=== PATIENT | male | born 2005 | race Caucasian/White ===

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

== ENCOUNTER 2024-09-29 08:31 | Emergency (ER) | payer SELFPAY ==
[2024-09-29 08:39] VITALS: BP 125/72; PULSE 69; RESP 16; TEMP 36.6; O2SAT 97; BMI 20.6
--- NOTE | 2024-09-29 08:39 | ED_ITS ---
HPI - Nausea/Vomiting/Diarrhea General Chief complaint: Abdominal Pain Stated complaint: Vomiting Time Seen by Provider: 09/29/24 11:17 Source: patient Mode of arrival: ambulatory Limitations: no limitations History of Present Illness ED Provider: Zenaida Deleon PA-C HPI Narrative: 19 yo male presnets to the ER for evaluation of vomiting along with a headache that started this morning. He states he has a scratchy throat, some body aches and muscle aches. He vomited 2 times this morning. He denies any associated abdominal pain, shortness of breath, chest pain. He states he is starting to feel little bit better. No known sick contacts. MD elicited complaint: vomiting and other (sore throat, headache) Onset (ago): hour(s) Description of vomiting: food contents Associated nausea: No Associated abdominal pain: No Location of pain: none Exacerbating factors: none Relieving factors: none Associated symptoms: myalgias, headaches and malaise Related Data Previous Rx's ?Medication ?Instructions ?Recorded amoxicillin 875 mg-potassium 1 tab PO BID #20 tabs 07/19 clavulanate 125 mg tablet ibuprofen 600 mg tablet 600 mg PO Q8H PRN fever or p ain 09/29/24 #14 tabs ondansetron 4 mg disintegrating 4 mg PO Q8H PRN nausea and 09/29/24 tablet vomiting #7 tabs Allergies Allergy/AdvReac Type Severity Reaction Status Date / Time No Known Allergies Allergy Verified 09/29/24 08:39 Review of Systems 2 Review of Systems: Yes all other systems are reviewed and are negative Gastrointestinal: Gastrointestinal: Denies nausea PMFSH Social History Social History Advance Directives: No Advance Directives Information Provided: Yes Physical Exam 2 Exam: Exam: Appearance: Alert. Oriented X3. No acute distress. Head: normocephalic, atraumatic. Eyes: Pupils equal, round and reactive to light. ENT: Pharynx with moderate generalized erythema, No tonsillar swelling or exudate. Neck: Normal inspection. Neck supple. CVS: Normal heart rate and rhythm. Pulses normal. Respiratory: No respiratory distress. Breath sounds normal. Abdomen: Soft and nontender. +BS x4 Skin: Skin warm and dry. Normal skin color. Normal skin turgor. No rashes. Extremities: No lower extremity edema. No joint swelling. Neuro/psych: Oriented X 3. grossly normal, nonfocal. Normal speech and cognition. Vital Signs: Vital Signs: Last Vital Signs Temp 97.8 F 09/29/24 08:39 Pulse 69 09/29/24 08:39 Resp 16 09/29/24 08:39 BP 125/72 09/29/24 08:39 Pulse Ox 97 09/29/24 08:39 O2 Del Method Room Air 09/29/24 08:39 BMI result Body Mass Index 20.6 Course Course Course Narrative: This is an RME: Additional HPI, ROS, PE not included below will be deferred to primary provider. RME assessment and note performed by: Tiara Casanova PA-C This is a 71-xrpt-foe-male, with no known medical problems, who presents to the ER with a complaint of nausea and vomiting since this morning. Reports that this woke him up. Reporting headache and sore throat. No abdominal pain now, had some abdominal pain previously. No recent etoh use. Reporting subjective fevers and chills. No diarrhea. Plan: Labs, Viral swabs, strep swab Medical Decision Making Medical Decision Making [facility] Narrative: 19-year-old male presents to the ER for evaluation of vomiting, headache, scratchy throat that started this morning. Vital signs are stable. He appears well. Physical exam is unremarkable. Lab work today shows no anemia, no leukocytosis. Normal LFTs, no major metabolic derangement. He did test positive for strep throat. Will start him on Augmentin and p.r.n. Zofran. He is able to tolerate p.o. and is stable for discharge home. Differential Diagnosis Differential Diagnoses: The differential diagnosis associated with the presentation includes strep, covid, flu, rsv, other viral syndrome, gastroenteritis, dehydration - no evidence of peritonsillar abcsess or retropharyngeal abscess Lab Data [facility] Lab Attestation statement: I reviewed the patient's lab results. see above 09/29/24 09:00 09/29/24 09:00 Labs: Lab Results 09/29/24 Range/Units 09:00 WBC 4.9 (4.8-10.8) X10*3/uL RBC 5.12 (4.60-5.80) X10*6/uL Hgb 16.2 (14.0-18.0) g/dl Hct 45.4 (42.0-52.0) % MCV 88.7 (80.0-98.0) fL MCH 31.6 (27.0-33.0) pg MCHC 35.7 (31.0-36.0) g/dl RDW 11.9 (11.0-16.0) % Plt Count 261 (160-400) X10*3/uL MPV 8.3 L (9.4-12.4) fL Immature Gran % (Auto) 0.2 (0.0-0.4) % Neut % (Auto) 63.6 (45-73) % Lymph % (Auto) 26.6 (20-40) % Nicholas % (Auto) 8.0 (2-11) % Eos % (Auto) 0.8 (0-4) % Baso % (Auto) 0.8 (0-2) % Lymph # (Auto) 1.3 (1.2-4.9) X10*3/uL Nicholas # (Auto) 0.4 (0.1-1.2) X10*3/uL Eos # (Auto) 0.0 (0.0-0.4) X10*3/uL Baso # (Auto) 0.0 (0.0-0.2) X10*3/uL Abs Immat Gran (auto) 0.01 (0.00-0.03) X10*3/uL Absolute Neuts (auto) 3.1 (2.0-8.3) x10*3/uL Absolute Nucleated RBC 0.000 (0.0-0.012) X10*3/uL Nucleated RBC % (auto) 0.0 (0.0-0.2) /100WBC Sodium 141 (135-145) mmol/L Potassium 4.0 (3.3-5.1) mmol/L Chloride 107 (96-108) mmol/L Carbon Dioxide 28 (22-29) mmol/L Anion Gap 10 L (12-20) BUN 10 (9-16) mg/dL Creatinine 1.04 (0.5-1.4) mg/dL Estim Creat Clear Calc 119.9 Estimated GFR > 60 Random Glucose 85 (60-115) mg/dL Calcium 9.1 (8.4-10.2) mg/dL Magnesium 1.9 (1.6-2.6) mg/dL Total Bilirubin 0.8 (0.0-1.0) mg/dL Direct Bilirubin 0.3 (0.0-0.5) mg/dL AST 24 (5-37) U/L ALT 18 (0-40) U/L Alkaline Phosphatase 85 (39-117) U/L Total Protein 7.2 (6.5-8.0) g/dL Albumin 4.7 (3.5-5.0) g/dL Lipase 10 (8-78) U/L Influenza Type A (PCR) NEGATIVE (Negative) Influenza Type B (PCR) NEGATIVE (Negative) RSV RNA Qual (PCR) NEGATIVE (Negative) SARS-CoV-2 RNA (RT-PCR) NEGATIVE (Negative) S. pyogenes GrpA JEANNE Positive A (Negative) Tests considered The following testing was considered but not selected: considered abdominal imaging however his abdominal exam is benign Prescription Management I considered prescription management with: Pain Medication and Antibiotic Critical Care Time Critical Care Time Critical Care Time: No Discharge Plan Discharge Clinical Impression: Acute streptococcal pharyngitis Patient Disposition: Home, Self-Care Instructions: Strep Throat (DC) Additional Instructions: Take the prescribed antibiotics as directed, complete the entire course and do not miss any doses Prescriptions: New amoxicillin-pot clavulanate 875-125 mg tablet 1 tab PO BID Qty: 20 0RF ibuprofen 600 mg tablet 600 mg PO Q8H PRN (Reason: fever or pain) Qty: 14 0RF ondansetron 4 mg tablet,disintegrating 4 mg PO Q8H PRN (Reason: nausea and vomiting) Qty: 7 0RF Stand Alone Forms: Work/School Release Discharge Date/Time: 09/29/24 11:38 Print Language: Ecuadorean
[2024-09-29 09:24] LABS: MANUAL DIFF FLAG NO
--- OUTSIDE RECORDS SUMMARY | 2024-09-29 09:24 | XMS_ITS | Clinical Summary ---
Author Organization [employer] Address [address] [place] [address] [address] [place] [address] Care Team Providers Care Database Modeler Name Role Phone Kierra Castillo MOO Primary Care Provider [phone] Allergies No known active allergies Medications sodium chloride (Taney Nasal [place]) 0.65 % nasal sprayIndication s:Viral syndrome 1-2 sprays on each nostril every 2-3 hours as needed for nasal congestion 30 mL 1 Active Active Problems No known active problems Social History Tobacco Use Types Packs/Day Years Used Date Smoking Tobacco: Never Passive Smoke Exposure: Never Smokeless Tobacco: Never Tobacco Cessation:Counseling Given: Not Answered Sex and Gender Information Value Date Recorded Sex Assigned at Male 12/25/2021 10:18 AM EDT Legal Sex Male 10:18 AM EDT Gender Identity Male 12/25/2021 10:18 AM EDT Sexual Orientation Straight 12/25/2021 10 :18 AM EDT Last Filed Vital Signs Vital Sign Reading Time Taken Comments Blood Pressure 129/77 06/06/2022 3:05 PM EDT Pulse 99 06/06/2022 3:05 PM EDT Temperature 36.9 C (98.5 F) 06/06/2022 3:05 PM EDT Respiratory Rate 20 06/06/2022 3:05 PM EDT Oxygen Saturation 97% 06/06/2022 3:05 PM EDT Inhaled Oxygen Concentration - - Weight 79 kg (174 lb 3.2 oz) 11/30/2021 12:10 AM EDT Height 187.3 cm (6' 1.75 ) 11/30/2021 12:10 AM E DT Body Mass Index 22.52 11/30/2021 12:10 AM EDT Plan of Treatment Health Maintenance Due Date Last Done Comments Chlamydia and Gonorrhea Screening 2004 Depression Screening 2004 HIV Screening 2004 SDOH Screening 2004 Disability Screening 2004 Alcohol/Substance Use Screening 2016 Family Planning (PISQ) 07/14/2019 Meningococcal B Vaccine (1 of 2 - Standard) 2020 Hepatitis C Screening 2022 Tobacco Screening 06/07/2023 06/06/2022 COVID-19 Vaccine ( season) 2023 Influenza Vaccine (#1) 2024 9, 02/15/2017, 02/23/2016, Additional history exists DTaP/Tdap/Td Vaccines (6 - Td or Tdap) 02/22/2026 02/23/2016, 02/17/2009, 10/19/2005, Additional history exists Zoster Vaccines (1 of 2) 2054 RSV Patients and Patients Aged 60 years or older (1 - 1-dose 75+ series) 07/14/2079 HIB Vaccines Aged Out 06/29/2005, 10/27, 2004 No longer eligible based on patient's age to complete this topic Hepatitis B Vaccines Completed 06/29/2005, 2004, 2004 Pneumococcal Vaccine: Pediatrics (0 to 5 Years) and At-Risk Patients (6 to 49) Years Aged Out 10/19/2005, 06/29/2005, 2004, Additional history exists No longer eligible based on patient's age to complete this topic IPV Vaccines Completed 02/17/2009, 09/26, 06/29/2005, Additional history exists Meningococcal Vaccine Aged Out 02/23/2016 No markie cheli eligible based on patient's age to complete this topic HPV Vaccines Completed 02/15/2017, 02/23/2016 Hepatitis A Vaccines Completed 02/15/2017, 01/14/20 15 RSV under 20 months Aged Out No longe r eligible based on patient's age to complete this topic Rotavirus Vaccines Aged Out No longer eligible based on patient's age to complete this topic Insurance [facility] C3 Care Teams Database Modeler Relationship Specialty Start Date End Date Kierra Castillo NP [address] [place] [address] PCP - General Family Medicine 03/29/23
[2024-09-29 09:26] LABS: Hematocrit 45.4 % (42.0-52.0); Hemoglobin 16.2 g/dl (14.0-18.0); Imm Gran Abs Auto 0.01 X10*3/uL (0.00-0.03); Imm Gran Pct Auto 0.2 % (0.0-0.4); Lymphocytes Absolute Auto 1.3 X10*3/uL (1.2-4.9); Mean Corpuscular HGB Conc 35.7 g/dl (31.0-36.0); Mean Corpuscular Hemoglobin 31.6 pg (27.0-33.0); Mean Corpuscular Volume 88.7 fL (80.0-98.0); NRBC Abs Auto 0.000 X10*3/uL (0.0-0.012); NRBC Pct Auto 0.0 /100WBC (0.0-0.2); Platelet Count 261 X10*3/uL (160-400); Red Blood Count 5.12 X10*6/uL (4.60-5.80); White Blood Count 4.9 X10*3/uL (4.8-10.8)
[2024-09-29 09:43] LABS: Alanine Aminotransferase 18 U/L (0-40); Albumin Level 4.7 g/dL (3.5-5.0); Alkaline Phosphatase 85 U/L (39-117); Anion Gap 10 (12-20); Aspartate Amino Transferase 24 U/L (5-37); Blood Urea Nitrogen 10 mg/dL (9-16); Calcium 9.1 mg/dL (8.4-10.2); Carbon Dioxide 28 mmol/L (22-29); Chloride 107 mmol/L (96-108); Creatinine Clr Calc Pharmacy 119.9; Estimated Glomerular Filt Rate > 60; Lipase 10 U/L (8-78); Magnesium 1.9 mg/dL (1.6-2.6); Potassium 4.0 mmol/L (3.3-5.1); Sodium 141 mmol/L (135-145); Total Protein 7.2 g/dL (6.5-8.0)
[2024-09-29 10:06] LABS: Resp Syncy Virus RNA Qual PCR NEGATIVE (Negative); SARS COV2 PCR INHOUSE NEGATIVE (Negative)
[2024-09-29 10:40] LABS: IDNOW Serial# 58CA691E; Strep A Nucleic Acid Positive (Negative)
== END 2024-09-29 11:38 | disposition home or self-care (01) ==
PROVIDERS: Physician Assistant Medical; Emergency Provider Emergency Medicine
DX: J02.0 Streptococcal pharyngitis (principal); R11.10 Vomiting, unspecified; R51.9 Headache, unspecified; Z03.818 Encounter for observation for suspected exposure to other biological agents ruled out
CPT/HCPCS: 80048; 80076; 83690; 83735; 85025; 87637; 87651; 99281; 99283

== ENCOUNTER 2024-12-07 12:58 | Emergency (ER) | payer MEDICAID, SELFPAY ==
[2024-12-07 13:06] VITALS: BP 128/59; PULSE 67; RESP 16; TEMP 36.3; O2SAT 99; BMI 21.9
--- NOTE | 2024-12-07 13:06 | ED_ITS ---
HPI - General Adult General Chief complaint: Eye Problems Stated complaint: pink eye Time Seen by Provider: 12/07/24 13:09 Source: patient Mode of arrival: ambulatory Limitations: no limitations History of Present Illness ED Provider: Brittney Rodriguez PA-C HPI narrative: Patient is a 19 year old assigned male at with no reported medical history presenting to the emergency department today with right eye pain, redness, and discharge. Patient states that he woke up this morning with right eye pain, crusting, and redness. Patient denies any other complaints at this time. Related Data Previous Rx's ?Medication ?Instructions ?Recorded amoxicillin 875 mg-potassium 1 tab PO BID #20 tabs 07/19 clavulanate 125 mg tablet ibuprofen 600 mg tablet 600 mg PO Q8H PRN fever or p ain 09/29/24 #14 tabs ondansetron 4 mg disintegrating 4 mg PO Q8H PRN nausea and 09/29/24 tablet vomiting #7 tabs erythromycin 5 mg/gram (0.5 %) eye 0.5 inch ophthalmic (eye) Q4H #3.5 12/07/24 ointment grams Allergies Allergy/AdvReac Type Severity Reaction Status Date / Time No Known Allergies Allergy Verified 12/07/24 13:08 Review of Systems Constitutional: Constitutional: Reports as per HPI Eyes: Eyes: Reports as per HPI ENT: Reports as per HPI Cardiovascular: Cardiovascular: Reports as per HPI Respiratory: Respiratory: Reports as per HPI Gastrointestinal: Gastrointestinal: Reports as per HPI Genitourinary: Genitourinary: Reports as per HPI Musculoskeletal: Musculoskeletal: Reports as per HPI Integumentary/Breasts: Skin/Breast: Reports as per HPI Neurologic: Reports as per HPI Psychiatric: Psychiatric: Reports as per HPI Endocrine: Endocrine: Reports as per HPI Hematologic/Lymphatic: Hematologic/Lymphatic: Reports as per HPI Allergic/Immunologic: Allergic/Immunologic: Reports as per HPI [facility] Past Medical History Attestation statement: The following information was validated with the patient. Source: old records reviewed and nursing notes reviewed Social History Social History Advance Directives: No Advance Directives Information Provided: No Do you have a plan to hurt others: No Plan Physical Exam ED Vital Signs: Vital Signs - 24 hr 12/07/24 13:06 Temperature 97.4 F Pulse Rate 67 Respiratory Rate 16 Blood Pressure 128/59 L Pulse Oximetry 99 Oxygen Delivery Method Room Air BMI result Body Mass Index 21.9 Const General: cooperative, no acute distress, alert and awake Nutritional Appearance: well nourished Orientation/consciousness: patient oriented x3 HENMT Head: Yes normal to inspection and Yes atraumatic Ears: hearing grossly normal bilaterally and external ears normal General nose exam: Normal external nose present, no nasal discharge noted and no epistaxis Face and sinus: Yes normal facial exam, No abrasion and No laceration Mouth: Normal oral and palatal mucosa present, no drooling and no muffled voice Eyes Other: minimal right eye erythema with crusting - consistent with conjunctivitis General: appearance normal, both eyes and all related structures Eyelids: Yes eyelids normal Pupils: Equal, round and reactive pupils present EOM: EOMs intact bilaterally Neck Neck: Yes normal visual inspection and Yes full ROM Resp Effort & Inspection: normal respiratory effort and able to speak in complete sentences Neuro General: patient oriented x3, moves all extremities and CN's II-XI intact bilaterally Cranial nerves: Yes Equal, round and reactive pupils present Cognition (Neuro): normal cognition Extrem General: Yes normal to inspection, Yes full ROM and Yes capillary refill normal Psych Appearance: grossly normal Mental Status: mental status grossly normal Affect: normal affect Attitude: cooperative Thought process: Normal thought process present Thought content: Normal thought content present Insight: Good insight present (Psych) Medical Decision Making Medical Decision Making MDM Narrative: Patient is a 19 year old assigned male at with no reported medical history presenting to the emergency department today with right eye pain, redness, and discharge. Patient's physical exam was as noted in the physical exam portion of this note and consistent with conjunctivitis. I explained my physical exam findings to the patient. I answered all questions asked by the patient. I stressed the importance of the patient taking his medication as directed (either prescribed or as the over the counter packaging recommends). I stressed the importance of the patient following up with his primary care provider. I stressed the importance of the patient returning to the emergency department immediately if his symptoms were to worsen or if he were to develop any dizziness, shortness of breath, difficulty breathing, chest pain, blurry vision, loss of vision, nausea, vomiting, abdominal pain, fever, chills, back pain, or any other complaints. Patient verbalized agreement and understanding with this treatment plan and discharge. Differential Diagnosis Differential Diagnoses: The differential diagnosis associated with the presentation includes Right eye pain Right eye swelling Right conjunctivitis Admission/Observation Consideration of admission/observation: Escalation of care including admission/observation considered Patient would have been admitted to the hospital had his clinical presentation warranted hospital admission. Prescription Management I considered prescription management with: Antibiotic (patient prescribed an antibiotic for right sided conjunctivitis) Discharge Plan Discharge Clinical Impression: Conjunctivitis Qualifiers: Conjunctivitis type: unspecified Laterality: right Qualified Code(s): H10.9 - Unspecified conjunctivitis Patient Disposition: Home, Self-Care Instructions: Conjunctivitis (ED) Additional Instructions: Use your antibiotic ointment as prescribed. IF you are prescribed home medications and/or you are taking over the counter medications at home - it is very important you continue to do so as prescribed / directed unless told otherwise. Follow up with your primary care provider. Return to the emergency department immediately if your symptoms worsen or if you develop any numbness, tingling, dizziness, shortness of breath, difficulty breathing, chest pain, blurry vision, loss of vision, nausea, vomiting, abdominal pain, fever, chills, back pain, or any other complaints. Please see the information below about our Patient Portal. If you are not yet enrolled in the [facility] Patient Portal, you will receive an enrollment email invitation following your visit to any [facility] setting. You may also self-enroll in the Patient Portal by visiting our website: [email or web address] The following information is required to access the Patient Portal: - Your [facility] Medical Record Number - Your personal home email address (must match what is in your electronic medical record, Registration staff can assist with this) - Name - Date of Capabilities of the Patient Portal: - Message some providers - View upcoming appointments - Access your health summary, medical history, and visit history - View current conditions and allergies - View procedure and lab results - View your medications, including guidelines, side effects, and precautions - Complete pre-appointment questionnaires requested by your provider - Ready summary reports of your office visits and procedures To access the Patient Portal Mobile [employer], follow these directions: - Search [employer] in the Masha Store or Google Play Store - Download the Masha - Search for [facility] - Enter your login/password Prescriptions: New erythromycin 5 mg/gram (0.5 %) ointment 0.5 inch ophthalmic (eye) Q4H Qty: 3.5 0RF No Action amoxicillin-pot clavulanate 875-125 mg tablet 1 tab PO BID Qty: 20 0RF ibuprofen 600 mg tablet 600 mg PO Q8H PRN (Reason: fever or pain) Qty: 14 0RF ondansetron 4 mg tablet,disintegrating 4 mg PO Q8H PRN (Reason: nausea and vomiting) Qty: 7 0RF Referrals: [place],[facility] [Primary Care Provider, Medical] Stand Alone Forms: Work/School Release Discharge Date/Time: 12/07/24 13:26 Print Language: Macedonian
--- OUTSIDE RECORDS SUMMARY | 2024-12-07 13:19 | XMS_ITS | Encounter Summary ---
Author Organization [employer] Address [address] [facility] [address] [place] [address] Care Team Providers Care Recruiter Name Role Phone Kierra Castillo NP Primary Care Provider [phone] Reason for Visit * Reason Onset Date Comments Nurse Triage 10/14/2023 Encounter Details Date Type Department Care Team ([facility] st Contact Info) Description 10/14/2023 Telephone [facility] MEDICINE [address] [place] [address] Kierra Castillo NP [address] [place] [address] Nurse Triage Social History Tobacco Use Types Packs/Day Years Used Date Smoking Tobacco: Never Passive Smoke Exposure: Never Smokeless Tobacco: Never Sex and Gender Information Value Date Recorded Sex Assigned at Male 12/25/2021 10:18 AM EDT Legal Sex Male 10:18 AM EDT Gender Identity Male 12/25/2021 10:18 AM EDT Sexual Orientation Straight 12/25/2021 10 :18 AM EDT documented as of this encounter Miscellaneous Notes * Telephone Encounter - Gustavo Mcguire - 10/14/2023 12:48 PM EDT Symptom: Coughing Up Blood Outcome: Schedule an urgent appointment (within 1 hour) or talk to a nurse or provider soon Reason: Caller denied all higher acuity questions documented in this encounter Plan of Treatment Not on file documented as of this encounter Visit Diagnoses Not on filedocumented in this encounter Care Teams Recruiter Relationship Specialty Start Date End Date Kierra Castillo NP [address] [place] [address] PCP - General Family Medicine 03/29/23 documented as of this encounter
--- OUTSIDE RECORDS SUMMARY | 2024-12-07 13:19 | XMS_ITS | Clinical Summary ---
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 Name Role Phone Kierra Castillo MOO Primary Care Provider [phone] Allergies No known active allergies Medications sodium chloride ([place] Nasal [place]) 0.65 % nasal sprayIndication s:Viral syndrome 1-2 sprays on each nostril every 2-3 hours as needed for nasal congestion 30 mL 1 Active Active Problems No known active problems Encounters Date Type Department Care Team Description 09/29/2024 Orders Only GENERIC EXTERNAL DATA DEPARTMENT Provider, Generic External Data from Last 3 Months Social History Tobacco Use Types Packs/Day Years [...] Screening 06/07/2023 06/06/2022 COVID-19 Vaccine ( season) 2024 Influenza Vaccine (#1) 2024 9, 02/15/2017, 02/23/2016, [...] on patient's age to complete this topic Procedures Procedure Name Priority Date/Time Associated Diagnosis Comments CBC WITH AUTO DIFFERENTIAL Routine 09/29/2024 9:00 AM EDT LIPASE Routine 09/29/2024 9:00 AM EDT MAGNESIUM Routine 09/29/2024 9:00 AM EDT BASIC METABOLIC PANEL Routine 09/29/2024 9:00 AM EDT HEPATIC FUNCTION PANEL Routine 09/29/2024 9:00 AM EDT STREP A NUCLEIC ACID Routine 09/29/2024 9:00 AM EDT SARS COV2/INFLUENZA A/B AND RSV RNA QL NAAT Routine 09/29/2024 9:00 AM EDT from Last 3 Months Results * (ABNORMAL) Strep A Nucleic Acid (09/29/2024 9:00 AM EDT) [employer]NOW SERIAL# [id number] [facility] Strep A Nucleic Acid Positive(A ) Negative [facility] Comment:All test results mus t be correlated with clinical findings.This test has not been evaluated for monitoring treatment ofinfection.Additional follow-up testing using the culture method isrequired if the result is negative and clinical symptomspersist, or in the event of an acute rheumatic feveroutbreak. 09/29/2024 9:00 AM EDT 09/29/2024 9:24 AM EDT us Generic External Data Provider LAB MICROBIOLOGY - GENERAL ORDERABLES Final Result [facility] [address] [place] [phone] * SARS-CoV-2 RNA, Influenza A/B, and RSV RNA, Ql NAAT (09/29/2024 9:00 AM EDT) Influenza A PCR NEGATIVE Negative [facility] Influenza B PCR NEGATIVE Negative [facility] Resp Syncy Virus RNA Qual PCR NEGATIVE Negative [facility] SARS COV2 PCR NEGATIVE Negative [facility] Comment:All test results mus t be correlated with clinical findings.Negative results do not preclude SARS-CoV2, influenza Avirus, influenza B virus and/or RSV infectionand should not be used as the sole basis for treatment orother patient management decisions. Negative results must becombined with clinical observations, patient history, andepidemiological information.This test has not been evaluated for monitoring treatment ofinfection.This test has been authorized by the FDA under an EmergencyUse Authorization (EUA) for use by authorized laboratories.Testing performed on the [employer] GeneXpert utilizingreal-time RT-PCR.All SARS CoV2 and positive influenza A/B results arereported to [facility]. 09/29/2024 9:00 AM EDT 09/29/2024 9:24 AM EDT Generic External Data Provider LAB MICROBIOLOGY - GENERAL ORDERABLES Final Result [facility] [address] [place] [phone] * (ABNORMAL) CBC auto differential (09/29/2024 9:00 AM EDT) White Blood Count 4.9 4.8 - 10.8 X10*3/uL [facility] Red Blood Count 5.12 4.60 - 5.80 X10*6/uL [facility] Hemoglobin 16.2 14.0 - 18.0 g/dl [facility] Hematocrit 45.4 42.0 - 52.0 % [facility] Mean Corpuscular Volume 88.7 80.0 - 98.0 fL [facility] Mean Corpuscular Hemoglobin 31.6 27.0 - 33.0 pg [facility] Mean Corpuscular HGB Conc 35.7 31.0 - 36.0 g/dl [facility] Red Cell Distribution Width 11.9 11.0 - 16.0 % [facility] Platelet Count 261 160 - 400 X10*3/uL [facility] Mean Platelet Volume 8.3(L) 9.4 - 12.4 fL [facility] Neutrophils Percent Auto 63.6 45 - 73 % [facility] Imm Gran Pct Auto 0.2 0.0 - 0.4 % [facility] Lymphocytes Percent Auto 26.6 20 - 40 % [facility] Monocytes Percent Auto 8.0 2 - 11 % [facility] Eosinophils Percent Auto 0.8 0 - 4 % [facility] Basophils Percent Auto 0.8 0 - 2 % [facility] NRBC Pct Auto 0.0 0.0 - 0.2 /100WBC [facility] Neutrophils Absolute Auto 3.1 2.0 - 8.3 x10*3/uL [facility] Imm Gran Abs Auto 0.01 0.00 - 0.03 X10*3/uL [facility] Lymphocytes Absolute Auto 1.3 1.2 - 4.9 X10*3/uL [facility] Monocytes Absolute Auto 0.4 0.1 - 1.2 X10*3/uL [facility] Eosinophils Absolute Auto 0.0 0.0 - 0.4 X10*3/uL [facility] Basophils Absolute Auto 0.0 0.0 - 0.2 X10*3/uL [facility] NRBC Abs Auto 0.000 0.0 - 0.012 X10*3/uL [facility] 09/29/2024 9:00 AM EDT 09/29/2024 9:23 AM EDT us Generic External Data Provider LAB BLOOD ORDERAB LES Final Result [facility] [address], [place] [phone] * Magnesium (09/29/2024 9:00 AM EDT) Magnesium 1.9 1.6 - 2.6 mg/dL [facility] 09/29/2024 9:00 AM EDT 09/29/2024 9:23 AM EDT us Generic External Data Provider LAB BLOOD ORDERAB LES Final Result Performing Organization Address [facility] Co de Phone Number [facility] [address] [place] [phone] * Lipase (09/29/2024 9:00 AM EDT) Lipase 10 8 - 78 U/L [facility] 09/29/2024 9:00 AM EDT 09/29/2024 9:23 AM EDT us Generic External Data Provider LAB BLOOD ORDERAB LES Final Result Performing Organization Address [facility] de Phone Number [facility] [address] [place] [phone] * Hepatic Function Panel (09/29/2024 9:00 AM EDT) Bilirubin, Total 0.8 0.0 - 1.0 mg/dL [facility] Bilirubin, Direct 0.3 0.0 - 0.5 mg/dL [facility] Aspartate Amino Transferase 24 5 - 37 U/L [facility] Alanine Aminotransferase 18 0 - 40 U/L [facility] Total Protein 7.2 6.5 - 8.0 g/dL [facility] Albumin Level 4.7 3.5 - 5.0 g/dL [facility] Alkaline Phosphatase 85 39 - 117 U/L [facility] 09/29/2024 9:00 AM EDT 09/29/2024 9:23 AM EDT Generic External Data Provider LAB BLOOD ORDERAB LES Final Result Performing Organization Address [facility] Co de Phone Number [facility] [address] [place] [phone] * (ABNORMAL) Basic Metabolic Panel (09/29/2024 9:00 AM EDT) Sodium 141 135 - 145 mmol/L [facility] Potassium 4.0 3.3 - 5.1 mmol/L [facility] Chloride 107 96 - 108 mmol/L [facility] Carbon Dioxide 28 22 - 29 mmol/L [facility] Anion Gap 10(L) 12 - 20 [facility] Urea Nitrogen (BUN) 10 9 - 16 mg/dL [facility] Creatinine, Serum 1.04 0.5 - 1.4 mg/dL [facility] Creatinine Clr Calc Pharmacy 119.9 [facility] Comment:eGFR (calculated fro m the MDRD study equation) and eCrCl(calculated from the Cockcroft-Gault equation) are based ondifferent parameters and may not yield comparable results.If eCrCl result is absurd, please check patient'sheight/weight. Estimated Glomerular Filt Rate >60 [facility] Comment:Chronic Kidney Disea se: Estimated GFR < 60 mL/min/[id number] Kidney Disease: Estimated GFR < 15 mL/min/1.73m2 Glucose 85 60 - 115 mg/dL [facility] Calcium 9.1 8.4 - 10.2 mg/dL [facility] 09/29/2024 9:00 AM EDT 09/29/2024 9:23 AM EDT us Generic External Data Provider LAB BLOOD ORDERAB LES Final Result [facility] [address] [place] [phone] from Last 3 Months [facility] Care Teams Malthouse Laborer Relationship Specialty Start Date End Date Kierra Castillo NP [address] [place] [address] PCP - General Family Medicine 03/29/23
== END 2024-12-07 13:26 | disposition home or self-care (01) ==
LOC: HO.ED 13:16
PROVIDERS: Emergency Provider Emergency Medicine
DX: H10.9 Unspecified conjunctivitis (principal); H57.11 Ocular pain, right eye
CPT/HCPCS: 99281; 99283